=== PATIENT | male | born 2000 | race Caucasian/White ===

== ENCOUNTER 2022-09-15 07:25 | Emergency (ER) | payer OTHER ==
[~2022-09-15] VITALS: Ht 172.7 cm; Wt 95.3 kg
[2022-09-15 07:37] VITALS: BP 125/84
[2022-09-15] MEDS ORDERED: ACETAMINOPHEN EXTRA STRENGTH 500 MG TAB PO ONE (07:40)
[2022-09-15] MEDS ORDERED: ACETAMINOPHEN EXTRA STRENGTH 500 MG TAB ONE (07:42)
[2022-09-15] MEDS ORDERED: BPM/118S31 PO (08:33)
[2022-09-15] MEDS ORDERED: TAM75 PO (08:33)
--- NOTE | 2022-09-15 08:37 | NUR ---
Patient discharged with v/s stable. Written and verbal after care instructions given and explained. Patient alert, oriented and verbalized understanding of instructions. Ambulatory with steady gait. All questions addressed prior to discharge. ID band removed. Patient advised to follow up with PMD. Rx of TAMIFLU, BROMFED given. Patient educated on indication of medication including possible reaction and side effects. Opportunity to ask questions provided and answered.
== END 2022-09-15 08:24 | disposition home or self-care (01) ==
LOC: MED 07:25
DX: J11.1 Influenza due to unidentified influenza virus with other respiratory manifestations (principal); Z20.822 Contact with and (suspected) exposure to COVID-19; Z79.899 Other long term (current) drug therapy
CPT/HCPCS: 99283

== ENCOUNTER 2023-04-13 07:31 | Emergency (ER) | payer OTHER ==
[~2023-04-13] VITALS: Ht 172.7 cm; Wt 95.7 kg
[~2023-04-13 07:31] MED LIST: BPM/118S31 PO; TAM75 PO
[2023-04-13 07:45] VITALS: BP 122/67; PULSE 98; RESP 16; TEMP 99.1; O2SAT 99
--- NOTE | 2023-04-13 07:50 | NUR ---
Amb. to bed 2 with no diff.
[2023-04-13] MEDS ORDERED: NACL 0.9% 1,000 ML IV SCH (08:05)
[2023-04-13] MEDS ORDERED: ONDANSETRON 4 MG/2 ML VIAL IVP ONE (08:05)
[2023-04-13 08:27] LABS: BASOPHILS % (AUTO) 0.3 % (0.0-2.0); EOSINOPHILS # (AUTO) 0.1 K/uL (0-0.4); HEMATOCRIT 42.8 % (36-52); HEMOGLOBIN 14.7 g/dL (12.0-18.0); LYMPHOCYTES # (AUTO) 0.8 K/uL (2.0-11.5); LYMPHOCYTES % (AUTO) 6.5 % (20.5-51.1); MEAN CORPUSCULAR HEMOGLOBIN 27 pg (27-31); MEAN CORPUSCULAR HGB CONC 34 g/dL (33-37); MEAN CORPUSCULAR VOLUME 77.3 fL (80-94); MONOCYTES % (AUTO) 8.2 % (1.7-9.3); NEUTROPHILS # (AUTO) 10.4 K/uL (1.8-7.7); PLATELET COUNT (AUTO) 185 K/uL (140-450); RED BLOOD CELL COUNT(AUTO) 5.53 MIL/uL (4.20-6.10); RED CELL DISTRIBUTION WIDTH 13.6 % (11.6-13.7); WHITE BLOOD COUNT (AUTO) 12.3 K/uL (4.5-11.0)
--- NOTE | 2023-04-13 08:41 | NUR ---
PATIENT PRESENTS TO ED WITH ABD PAIN, SIGNS OF HEADACHE. PT STATES HES HAD THE PROBLEM FOR 2 DAYS.NO KNOWN ALERGIES. PT DENIES ANY PREVIOUS MEDICAL HISTORY. DENIES N/V/D; SKIN IS PINK/WARM/DRY; AAOX4 WITH EVEN AND STEADY GAIT; LUNGS CLEAR BL; HR EVEN AND REGULAR; PT DENIES ANY FEVER, CP, SOB, OR COUGH AT THIS TIME; PATIENT STATES PAIN OF 8/10 AT THIS TIME; VSS; PATIENT POSITIONED FOR COMFORT; HOB ELEVATED; BEDRAILS UP X2; BED DOWN. EKG DONE AND ER MD MADE AWARE OF PT STATUS.
[2023-04-13 08:47] VITALS: O2SAT 98
[2023-04-13 08:49] LABS: ALBUMIN 3.7 g/dL (3.4-5.0); ANION GAP 12.1 (8-16); CARBON DIOXIDE 27.4 mmol/L (21-32); CREATININE 0.9 mg/dL (0.6-1.3); POTASSIUM 3.5 mmol/L (3.5-5.1); TOTAL BILIRUBIN 1.3 mg/dL (0.0-1.0)
[2023-04-13 08:54] VITALS: O2SAT 98
[2023-04-13 08:59] LABS: APPEARANCE,URINE CLEAR (CLEAR); BILIRUBIN,URINE NEGATIVE (NEGATIVE); BLOOD, URINE NEGATIVE (NEGATIVE); COLOR,URINE YELLOW (YELLOW); LEUKOCYTE ESTERASE ,URINE NEGATIVE (NEGATIVE); NITRITE, URINE NEGATIVE (NEGATIVE); UGLUCOSE NEGATIVE (NEGATIVE)
[2023-04-13] MEDS ORDERED: ONDA-188 PO (10:09)
[2023-04-13] MEDS ORDERED: ATRO1TAB PO (10:09)
[2023-04-13] MEDS ORDERED: ACET-10509 PO (10:09)
[2023-04-13] MEDS ORDERED: ACETAMINOPHEN 325 MG TAB PO ONE (10:10)
[2023-04-13] MEDS ORDERED: DIPHENOXYLATE /ATROPINE 2.5 MG TAB PO ONE (10:10)
--- NOTE | 2023-04-13 10:27 | NUR ---
Pt has been medicated per providers orders. Pt has know know alergies. Pts stool specimen collected and sent to lab.
[2023-04-13 10:30] VITALS: BP 126/70; PULSE 89; RESP 18; TEMP 97.8
--- NOTE | 2023-04-13 10:30 | NUR ---
Patient discharged with v/s stable. Written and verbal after care instructions given and explained. Patient verbalized understanding. Ambulatory with steady gait. All questions addressed prior to discharge. Advised to follow up with PMD.
[2023-04-15] MEDS ORDERED: CIPR250T6 PO (01:43)
== END 2023-04-13 10:30 | disposition home or self-care (01) ==
LOC: MED 07:31
DX: R19.7 Diarrhea, unspecified (principal); R53.1 Weakness; R11.0 Nausea; Z79.899 Other long term (current) drug therapy; Z98.890 Other specified postprocedural states
CPT/HCPCS: 36415; 80053; 81003; 82272; 83690; 85025; 87045; 87427; 89055; 93005; 96360; 99284; J7030; J2405